=== PATIENT | female | born 2000 ===

== ENCOUNTER 2019-10-13 12:53 | Emergency (ER) | payer SELFPAY ==
[2019-10-13] MEDS ORDERED: Morphine 4 MG/ML VIAL ONE (13:21)
[2019-10-13] MEDS ORDERED: Ketorolac Tromethamine 30 MG/ML VIAL ONE (13:21)
--- NOTE | 2019-10-13 13:45 | RAD ---
Exam: Right ankle 3 views: HISTORY: Right ankle pain, trauma COMPARISON: None FINDINGS: Minimal soft tissue swelling No evidence for fracture, dislocation, or other significant acute osseous abnormality. IMPRESSION: No significant acute process.
== END 2019-10-13 16:00 | disposition home or self-care (01) ==
LOC: ERS 12:53
DX: S93.401A Sprain of unspecified ligament of right ankle, initial encounter (principal); F41.9 Anxiety disorder, unspecified; F32.9 Major depressive disorder, single episode, unspecified; V89.2XXA Person injured in unspecified motor-vehicle accident, traffic, initial encounter
CPT/HCPCS: 96372; J1885; J2270